=== PATIENT | female | born 1975 | race Caucasian/White ===

== ENCOUNTER 2020-11-02 17:32 | Emergency (ER) | payer MEDICAID, SELFPAY ==
[2020-11-02 17:46] VITALS: BP 116/72; PULSE 65; RESP 16; TEMP 36.3; O2SAT 100
--- NOTE | 2020-11-02 18:13 | ED.GENADULT ---
HPI - General Adult General Chief complaint: Eye Problems Stated complaint: eye irritation Time Seen by Provider: 11/02/20 18:13 Source: patient and RN notes reviewed Mode of arrival: ambulatory Limitations: no limitations History of Present Illness HPI narrative: 45-year-old female presents with complaints of left eye redness, irritation, some burning, and itching for 1 day. Elke reports awaken on 11/01/2020 with LT eye matted together, used a warm washed cloth to free eye of debris. Warm compression with some relief. No pain. No copious drainage. Exacerbating factors is opening eye and light. Relieving factors is closing eyes. Does not wear glasses or contact lenses. No blurred vision, double vision, sensation of foreign body, or pain of eye with movement. LMP hysterectomy. The patient reports she have not been diagnosed with COVID-19. The patient reports she is not waiting for the results of a COVID-19 lab test. The patient reports she do not have chills, weakness, or fatigue. The patient reports she do not have a new or worsening cough or shortness of breath. Denies chest pain. The patient reports she do not have any rhinorrhea, congestion, sore throat, loss of taste or smell, nausea, vomiting, abdominal pain, and diarrhea. Tolerating po intake well. Denies recent traveling. Denies concerns for COVID-19 or exposures been home with limited outdoor exposure except for essential household needs, work, and return home. At this time, patient is not suspected of having COVID-19. Some parts of this dictation were generated by voice recognition software and may contain typographical and/or grammatical inaccuracies. Related Data Allergies Allergy/AdvReac Type Severity Reaction Status Date / Time ketorolac Allergy Unknown HEADACHES Unverified 12/11/15 17:35 meloxicam Allergy Unknown HEADACHES Verified 12/11/15 17:35 oxaprozin Allergy Unknown Verified 12/11/15 17:35 tramadol Allergy Unknown Verified 09/07/16 18:31 DOXYCYCLINE CALCIUM Allergy Unknown Uncoded 12/11/15 17:35 DOXYCYCLINE HYCLATE Allergy Unknown Uncoded 12/11/15 17:35 DOXYCYCLINE MONOHYDRATE Allergy Unknown Uncoded 12/11/15 17:35 Review of Systems Review of Systems: Narrative: CONSTITUTIONAL: Denies fever, chills, sweats. EYES: Denies visual changes. Complains of LT eye redness, itching, and irritation. ENT: Complains of rhinorrhea, congestion. Denies sore throat, otalgia. CARDIOVASCULAR: Denies chest pain, palpitations, edema. RESPIRATORY: Denies dyspnea, wheezing, cough. GASTROINTESTINAL: Denies abdominal pain, nausea, vomiting, diarrhea. SKIN: Denies rash or itching. MUSCULOSKELETAL: Denies acute back pain, joint pain, or myalgia. NEUROLOGIC: Denies numbness or focal weakness. PSYCHIATRIC: Denies anxiety or depression. All systems reviewed & are unremarkable except as noted in HPI and below. [facility] Past Medical History Medical History Obesity Smoker Surgical History Surgical History (Updated 11/02/20 @ 18:29 by TURONG Arroyo) History of hysterectomy History of tubal ligation Hx of laparoscopic adjustable gastric banding Family History Family History (Updated 11/02/20 @ 18:30 by TRUONG Arroyo) Father Unknown family medical history Mother Hypertension Social History Social History (Updated 11/02/20 @ 18:30 by TRUONG Arroyo) Smoking packs per day: 1 Smoking cigarettes per day: 20.0 Years smoked: 15 Smoking pack-years: 15.00 Smoking status: Current every day smoker Tobacco type: cigarettes Second hand tobacco smoke exposure: Yes (spouse) Alcohol intake: never Substance use: never Living arrangements: with family Occupation/Education: occupation Gender identity (if verbalized by the patient): Female Sexual Orientation (if Verbalized by the Patient): Straight or Heterosexual Comments At time of signature, agree with nurse past medical, surgical, social, and family histor
== END 2020-11-02 18:37 | disposition home or self-care (01) ==
PROVIDERS: Emergency Provider Nurse Practitioner Family
DX: H10.32 Unspecified acute conjunctivitis, left eye (principal); F17.210 Nicotine dependence, cigarettes, uncomplicated
CPT/HCPCS: 99213; A9270; G0463

== ENCOUNTER 2021-06-02 13:20 | Emergency (ER) | payer SELFPAY ==
[2021-06-02 13:27] VITALS: BP 101/64; PULSE 78; RESP 16; TEMP 36.4; O2SAT 99
[2021-06-02 13:34] VITALS: BP 101/64; PULSE 78; RESP 16; TEMP 36.4; O2SAT 99
--- NOTE | 2021-06-02 13:38 | ED.WOUNDLAC ---
HPI - Wound/Laceration General Chief Complaint: Wound/Laceration Stated Complaint: rt hand laceration Time Seen by Provider: 06/02/21 13:29 Source: patient and RN notes reviewed History of Present Illness HPI narrative: Patient is a 46-year-old female who presents the urgent care with complaints of a laceration to the top of the right hand. Patient states that she was taking a hot broken dish out of the microwave while at work and it sliced the top of her hand. Patient states that she is up-to-date on her tetanus. States that the incident happened just prior to arrival. Patient has controlled bleeding but otherwise has not taken any [id number] medications. No other acute complaints. No acute distress noted. Patient read the plan of care. Some parts of this dictation were generated by voice recognition software and may contain typographical and/or grammatical inaccuracies. Related Data Allergies Allergy/AdvReac Type Severity Reaction Status Date / Time ketorolac Allergy Unknown HEADACHES Unverified 12/11/15 17:35 meloxicam Allergy Unknown HEADACHES Verified 12/11/15 17:35 oxaprozin Allergy Unknown Unknown Verified 06/02/21 13:34 tramadol Allergy Unknown Unknown Verified 06/02/21 13:34 doxycycline [From Vibramycin] Allergy Unknown Verified 06/02/21 13:34 DOXYCYCLINE CALCIUM Allergy Unknown Unknown Uncoded 06/02/21 13:34 DOXYCYCLINE HYCLATE Allergy Unknown Unknown Uncoded 06/02/21 13:34 DOXYCYCLINE MONOHYDRATE Allergy Unknown Unknown Uncoded 06/02/21 13:34 Review of Systems Review of Systems: CONSTITUTIONAL: Denies fever, chills, or sweats. EYES: Denies visual changes, redness, or discharge. ENT: Denies rhinorrhea, congestion, sore throat, or otalgia. CARDIOVASCULAR: Denies chest pain, palpitations, or edema. RESPIRATORY: Denies cough or dyspnea. GASTROINTESTINAL: Denies abdominal pain, nausea, vomiting, or diarrhea. GENITOURINARY: Denies dysuria or hematuria. SKIN: Reports of a laceration to the top of the right hand MUSCULOSKELETAL: Denies back pain, joint pain, or myalgia. NEUROLOGIC: Denies headache, numbness, or weakness. All other systems reviewed are negative, except as documented in HPI. [facility] Past Medical History Medical History Obesity Smoker Surgical History Surgical History (Updated 11/02/20 @ 18:29 by TRUONG Arroyo) History of hysterectomy History of tubal ligation Hx of laparoscopic adjustable gastric banding Family History Family History (Updated 11/02/20 @ 18:30 by TRUONG Arroyo) Father Unknown family medical history Mother Hypertension Social History Social History (Updated 11/02/20 @ 18:30 by TRUONG Arroyo) Smoking packs per day: 1 Smoking cigarettes per day: 20.0 Years smoked: 15 Smoking pack-years: 15.00 Smoking status: Current every day smoker Tobacco type: cigarettes Second hand tobacco smoke exposure: Yes (spouse) Alcohol intake: never Substance use: never Gender identity (if verbalized by the patient): Female Sexual Orientation (if Verbalized by the Patient): Straight or Heterosexual Comments At the time of my signature, I reviewed and agree with the nursing past medical, surgical, social, and family history. There is no relevant family history pertinent to the patient complaint. Exam Narrative: GENERAL: This is a well-nourished, well-developed patient, in no apparent distress. HEAD: normocephalic, atraumatic. EYES: PERRL. Sclera clear/white. Vision is grossly intact. EARS: External ears normal NOSE: External nose normal with no obvious nasal discharge, nares without redness, no rhinorrhea. THROAT: Mucous membranes moist NECK: Neck supple SKIN: 1.25 cm superficial laceration to the top of the right hand NEURO: awake, alert, and oriented to person, place and time. There were no obvious focal neurologic abnormalities. EXTREMITIES: No clubbing, cyanosis, or edema. Course Vital Signs Vital signs: Vital Signs Otis
== END 2021-06-02 13:53 | disposition home or self-care (01) ==
PROVIDERS: Emergency Provider Nurse Practitioner Family
DX: S61.411A Laceration without foreign body of right hand, initial encounter (principal); W45.8XXA Other foreign body or object entering through skin, initial encounter; Y99.0 Civilian activity done for income or pay; F17.210 Nicotine dependence, cigarettes, uncomplicated; Z98.84 Bariatric surgery status
CPT/HCPCS: 12001; 99212; G0463

== ENCOUNTER 2022-12-27 17:39 | Emergency (ER) | payer MEDICAID, SELFPAY ==
--- NOTE | ~2022-12-27 | XR_ITS ---
EXAMINATION: XR foot LT min 3V DATE: 12/27/2022 18:23 INDICATION: Lateral left foot pain TECHNIQUE: Dorsoplantar, two oblique and lateral views of the left foot were obtained. COMPARISON: None. FINDINGS: Alignment is normal. No fracture. 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 Soft tissues are unremarkable. No ankle joint effusion. IMPRESSION: 1. No acute osseous abnormality. Reviewed, dictated and finalized at location A.
[2022-12-27 17:46] VITALS: BP 136/78; PULSE 71; RESP 16; TEMP 36.6; O2SAT 100
--- NOTE | 2022-12-27 18:13 | ED.EXTPRO ---
HPI - Extremity Problem General Chief complaint: Extremity Problem,Nontraumatic Stated complaint: pain in left foot for 2 wks Time Seen by Provider: 12/27/22 18:10 Source: patient Mode of arrival: ambulatory Limitations: no limitations History of Present Illness HPI Narrative: 47 year old female who presents to [facility] with complaints of 2 week duration of left foot lateral aspect discomfort with no known injury. Patient reports that pain seems to be worse when she has tennis shoes on and has tried 3 different pair. 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 Patient reports that she has taken Tylenol, Ibuprofen and has used ice to her foot without relief in her symptoms. MD Complaint: extremity pain Onset (ago): week(s) (2) Pain Consistency: constant Location: left and lower extremity (lateral foot) Severity scale (1-10): 3 Related Data Allergies Allergy/AdvReac Type Severity Reaction Status Date / Time ketorolac Allergy Unknown HEADACHES Unverified 12/27/22 17:53 meloxicam Allergy Unknown HEADACHES Verified 12/27/22 17:53 oxaprozin Allergy Unknown Unknown Verified 12/27/22 17:53 tramadol Allergy Unknown Unknown Verified 12/27/22 17:53 doxycycline [From Vibramycin] Allergy Unknown Verified 12/27/22 17:53 DOXYCYCLINE CALCIUM Allergy Unknown Unknown Uncoded 12/27/22 17:53 DOXYCYCLINE HYCLATE Allergy Unknown Unknown Uncoded 12/27/22 17:53 DOXYCYCLINE MONOHYDRATE Allergy Unknown Unknown Uncoded 12/27/22 17:53 Review of Systems Review of Systems: CONSTITUTIONAL: Denies fever, chills, or sweats. EYES: Denies visual changes, redness, or discharge. ENT: Denies rhinorrhea, congestion, sore throat, or otalgia. CARDIOVASCULAR: Denies chest pain, palpitations, or edema. RESPIRATORY: Denies cough or dyspnea. GASTROINTESTINAL: Denies abdominal pain, nausea, vomiting, or diarrhea. GENITOURINARY: Denies dysuria or hematuria. SKIN: Denies rash or itching. MUSCULOSKELETAL: Denies back pain, joint pain,reports pain to lateral aspect of left foot mid aspect of foot or myalgia. NEUROLOGIC: Denies headache, numbness, or weakness. PSYCHIATRIC: History of anxiety or depression. All systems reviewed & are unremarkable except as noted in HPI and below PMFSH Past Medical History Medical History Obesity Smoker Surgical History Surgical History History of hysterectomy History of tubal ligation Hx of laparoscopic adjustable gastric banding Family History Family History Father Unknown family medical history Mother Hypertension Social History Social History Smoking packs per day: 1 Smoking cigarettes per day: 20.0 Years smoked: 15 Smoking pack-years: 15.00 Smoking status: Current every day smoker Tobacco type: cigarettes Second hand tobacco smoke exposure: Yes (spouse) Alcohol intake: never Substance use: never Living arrangements: with family Occupation/Education: occupation Gender identity (if verbalized by the patient): Female Sexual Orientation (if Verbalized by the Patient): Straight or Heterosexual Comments At time of signature, agree with nursing past medical, surgical, social and family history. There is no relevant family history pertinent to the presenting complaint Exam Narrative: GENERAL: Well-appearing, well-nourished, and in no acute distress. HEAD: Normocephalic, atraumatic. EYES: PERRLA and EOMI. ENT: Nares clear, no rhinorrhea or epistaxis. Mucous membranes moist.TM's normal, throat pink with no swelling NECK: Supple.no lymphadenopathy CHEST: Clear to auscultation. No respiratory distress.SAO2 100% on room air HEART: Regular rate and rhythm. No murmur heard. Normal peripheral pulses. ABDOMEN: Soft, nontender, nondistended, normal active bowel sounds. EXTREMITIES: Normal range of m
== END 2022-12-27 18:52 | disposition home or self-care (01) ==
PROVIDERS: Emergency Provider Registered Nurse
DX: M79.672 Pain in left foot (principal); F17.210 Nicotine dependence, cigarettes, uncomplicated; E66.9 Obesity, unspecified; Z68.29 Body mass index [BMI] 29.0-29.9, adult
CPT/HCPCS: 73630; 99213; G0463

== ENCOUNTER 2023-01-05 18:22 | Emergency (ER) | payer MEDICAID, SELFPAY ==
[2023-01-05 18:30] VITALS: BP 125/69; PULSE 75; RESP 16; TEMP 36.5; O2SAT 100
--- NOTE | 2023-01-05 18:31 | ED.URI ---
HPI - URI/Sore Throat General Chief Complaint: Upper Respiratory Infection Stated Complaint: COUGH/CHEST BURNING/HEADACHE Time Seen by Provider: 01/05/23 18:31 Source: patient Mode of arrival: ambulatory Limitations: no limitations History of Present Illness HPI Narrative: 47-year-old female presents with complaint of nasal congestion, sore throat, cough, burning chest, fatigue starting last night. No chest pain or shortness of breath. Taking DayQuil to treat symptoms. Afebrile. Denies nausea vomiting diarrhea. Sick contacts per patient. All systems reviewed and negative except as noted above. Related Data Allergies Allergy/AdvReac Type Severity Reaction Status Date / Time ketorolac Allergy Unknown HEADACHES Unverified 01/05/23 18:23 meloxicam Allergy Unknown HEADACHES Verified 01/05/23 18:23 oxaprozin Allergy Unknown Unknown Verified 01/05/23 18:23 tramadol Allergy Unknown Unknown Verified 01/05/23 18:23 doxycycline [From Vibramycin] Allergy Unknown Verified 01/05/23 18:23 DOXYCYCLINE CALCIUM Allergy Unknown Unknown Uncoded 01/05/23 18:23 DOXYCYCLINE HYCLATE Allergy Unknown Unknown Uncoded 01/05/23 18:23 DOXYCYCLINE MONOHYDRATE Allergy Unknown Unknown Uncoded 01/05/23 18:23 Review of Systems Review of Systems: CONSTITUTIONAL: Denies fever, chills, or sweats. Reports fatigue. EYES: Denies visual changes, redness, or discharge. ENT: Reports rhinorrhea, congestion, sore throat. Denies otalgia. CARDIOVASCULAR: Denies chest pain, palpitations, or edema. RESPIRATORY: Reports cough. Denies dyspnea. GASTROINTESTINAL: Denies abdominal pain, nausea, vomiting, or diarrhea. GENITOURINARY: Denies dysuria or hematuria. SKIN: Denies rash or itching. MUSCULOSKELETAL: Denies back pain, joint pain, or myalgia. NEUROLOGIC: Denies headache, numbness, or weakness. PSYCHIATRIC: Denies anxiety or depression. All other systems reviewed are negative, except as documented in HPI. [facility] Past Medical History Medical History Obesity Smoker Surgical History Surgical History History of hysterectomy History of tubal ligation Hx of laparoscopic adjustable gastric banding Family History Family History Father Unknown family medical history Mother Hypertension Social History Social History Smoking packs per day: 1 Smoking cigarettes per day: 20.0 Years smoked: 15 Smoking pack-years: 15.00 Smoking status: Current every day smoker Tobacco type: cigarettes Second hand tobacco smoke exposure: Yes (spouse) Alcohol intake: never Substance use: never Living arrangements: with family Occupation/Education: occupation Gender identity (if verbalized by the patient): Female Sexual Orientation (if Verbalized by the Patient): Straight or Heterosexual Comments At time of signature, agree with nursing past medical, surgical, social and family history. There is no relevant family history pertinent to the presenting complaint. Exam Narrative: GENERAL: This is a well-nourished, well-developed patient, in no apparent distress. HEAD: normocephalic, atraumatic. EYES: PERRL. Sclera clear/white. Vision is grossly intact. EARS: External ears normal, auditory canals clear and without drainage, TMs normal without perforation. Hearing grossly intact. NOSE: External nose normal with clear nasal drainage. No erythema or swelling to nares. THROAT: Mucous membranes moist, posterior pharynx clear. NECK: Neck supple, non-tender without lymphadenopathy, masses or thyromegaly. CARDIOVASCULAR: Regular rate and rhythm without murmurs, gallops, or rubs. RESPIRATORY: Clear to auscultation. Breath sounds equal bilaterally. No wheezes, rales, or rhonchi. SKIN: warm, Dry, intact with no suspicious lesions or rash, good texture and turgor. NEURO: awake, alert, and oriented
== END 2023-01-05 18:56 | disposition home or self-care (01) ==
PROVIDERS: Emergency Provider Nurse Practitioner Family
DX: J06.9 Acute upper respiratory infection, unspecified (principal); Z20.822 Contact with and (suspected) exposure to COVID-19; F17.210 Nicotine dependence, cigarettes, uncomplicated; E66.9 Obesity, unspecified; Z68.27 Body mass index [BMI] 27.0-27.9, adult
CPT/HCPCS: 87081; 87426; 87804; 87880; 99213; C9803; G0463

== ENCOUNTER 2023-09-16 16:13 | Emergency (ER) | payer BC, SELFPAY ==
--- NOTE | 2023-09-16 16:18 | ED.URI ---
HPI - URI/Sore Throat General Chief Complaint: Upper Respiratory Infection Stated Complaint: Sore Throat Time Seen by Provider: 09/16/23 16:17 Source: patient Mode of arrival: ambulatory Limitations: no limitations History of Present Illness HPI Narrative: Elke is a 48-year-old female patient presenting to the clinic today with complaints of a sore throat and headache that just started this morning although she has had nasal congestion for the past 2 days. She reports no known fever or chills. Denies any chest pain or shortness of breath. MD elicited complaint: sore throat and nasal congestion Related Data Home Medications Medication Instructions Recorded Confirmed bupropion HCl 150 mg tablet,12 hr mg PO 09/16/23 sustained-release nicotine 14 mg/24 hr daily 09/16/23 transdermal patch Allergies Allergy/AdvReac Type Severity Reaction Status Date / Time ketorolac Allergy Unknown HEADACHES Verified 09/16/23 16:24 meloxicam Allergy Unknown HEADACHES Verified 09/16/23 16:24 oxaprozin Allergy Unknown Unknown Verified 09/16/23 16:24 tramadol Allergy Unknown Unknown Verified 09/16/23 16:24 doxycycline [From Vibramycin] Allergy Unknown Verified 09/16/23 16:24 DOXYCYCLINE CALCIUM Allergy Unknown Unknown Uncoded 09/16/23 16:24 DOXYCYCLINE HYCLATE Allergy Unknown Unknown Uncoded 09/16/23 16:24 DOXYCYCLINE MONOHYDRATE Allergy Unknown Unknown Uncoded 09/16/23 16:24 Review of Systems Review of Systems: Pertinent positives per HPI. Patient denies any fever, chills, rash, visual changes, dizziness, cough, shortness of breath, chest pain, palpitations, nausea, vomiting, diarrhea, constipation, abdominal pain, or any urinary issues. [facility] Past Medical History Medical History Obesity Smoker Surgical History Surgical History History of hysterectomy History of tubal ligation Hx of laparoscopic adjustable gastric banding Family History Family History Father Unknown family medical history Mother Hypertension Social History Social History Smoking packs per day: 1 Smoking cigarettes per day: 20.0 Years smoked: 15 Smoking pack-years: 15.00 Smoking status: Current every day smoker Tobacco type: cigarettes Second hand tobacco smoke exposure: Yes (spouse) Alcohol intake: never Substance use: never Living arrangements: with family Occupation/Education: occupation Gender identity (if verbalized by the patient): Female Sexual Orientation (if Verbalized by the Patient): Straight or Heterosexual Comments At the time of my signature, I reviewed and agree with the nursing past medical, surgical, social, and family history. There is no relevant family history pertinent to the patient complaint. Exam Narrative: General: Well-developed, well nourished, in no apparent distress Head: Normocephalic, atraumatic Eyes: Pupils equally round and reactive to light bilaterally, EOM intact, sclera and conjunctive clear, no discharge, lids normal Ears: TMs intact and clear, ear canals clear, no drainage, grossly hearing normal. Nose: Nares patent, no discharge, no inflammation, no sinus tenderness. Mouth: Oral pharynx without lesions or masses, good dentition, MMM. Neck: Supple, trachea midline, no enlargement of anterior or posterior cervical nodes, no thyroid masses or goiter palpable. Cardio: Regular rate and rhythm, s1 and s2 normal, no murmur appreciated. Resp: Clear to auscultation bilaterally, no rhonchi, rales, wheezing or rubs Course Course Emergency Course: Portions of this record may have been created with voice recognition software. Level of Care: Express Care Visit Vital Signs Vital signs: Vital signs reviewed MDM - URI/Sore Throat MDM Narrative Medical decision making narrative: At the time
[2023-09-16 16:26] VITALS: BP 141/87; PULSE 61; RESP 16; TEMP 36.6; O2SAT 100
== END 2023-09-16 16:50 | disposition home or self-care (01) ==
PROVIDERS: Emergency Provider Nurse Practitioner Family
DX: J06.9 Acute upper respiratory infection, unspecified (principal); B34.9 Viral infection, unspecified; J02.9 Acute pharyngitis, unspecified; Z20.822 Contact with and (suspected) exposure to COVID-19; F17.210 Nicotine dependence, cigarettes, uncomplicated
CPT/HCPCS: 87081; 87426; 87804; 87880; 99213; G0463

== ENCOUNTER 2024-02-26 16:48 | Emergency (ER) | payer BC, SELFPAY ==
[2024-02-26 17:09] VITALS: BP 122/92; PULSE 68; RESP 16; TEMP 36.4; O2SAT 100
--- NOTE | 2024-02-26 17:30 | ED.URI ---
HPI - URI/Sore Throat General Chief Complaint: Upper Respiratory Infection Stated Complaint: COUGH/SOB Time Seen by Provider: 02/26/24 17:30 Source: patient, RN notes reviewed and old records reviewed Mode of arrival: ambulatory Limitations: no limitations History of Present Illness HPI Narrative: patient presents with complaints of cough and fatigue that began this morning. She reports subjective fever, fatigue. She has not been taking anything for her symptoms. She did have to leave work due to her symptoms. Related Data Home Medications Medication Instructions Recorded Confirmed No Home Medications 02/26/24 02/26/24 Allergies Allergy/AdvReac Type Severity Reaction Status Date / Time ketorolac Allergy Unknown HEADACHES Verified 09/16/23 16:24 meloxicam Allergy Unknown HEADACHES Verified 09/16/23 16:24 oxaprozin Allergy Unknown Unknown Verified 09/16/23 16:24 tramadol Allergy Unknown Unknown Verified 02/26/24 17:07 doxycycline [From Vibramycin] Allergy Unknown Verified 09/16/23 16:24 DOXYCYCLINE CALCIUM Allergy Unknown Unknown Uncoded 09/16/23 16:24 DOXYCYCLINE HYCLATE Allergy Unknown Unknown Uncoded 09/16/23 16:24 DOXYCYCLINE MONOHYDRATE Allergy Unknown Unknown Uncoded 09/16/23 16:24 Review of Systems Review of Systems: All systems reviewed & are unremarkable except as noted in HPI and below Constitutional: Constitutional: Reports no additional constitutional complaints ENT: Reports system reviewed and no additional complaints, except as documented Cardiovascular: Cardiovascular: Reports no additional cardiovascular complaints Respiratory: Respiratory: Reports as per HPI, Reports no additional respiratory complaints and Reports cough Gastrointestinal: Gastrointestinal: Reports no additional gastrointestinal complaints Neurologic: Reports headache(s) PMFSH Past Medical History Medical History Obesity Smoker Surgical History Surgical History History of hysterectomy History of tubal ligation Hx of laparoscopic adjustable gastric banding Family History Family History Father Unknown family medical history Mother Hypertension Social History Social History Smoking packs per day: 1 Smoking cigarettes per day: 20.0 Years smoked: 15 Smoking pack-years: 15.00 Smoking status: Current every day smoker Tobacco type: cigarettes Second hand tobacco smoke exposure: Yes (spouse) Alcohol intake: never Substance use: never Living arrangements: with family Occupation/Education: occupation Gender identity (if verbalized by the patient): Female Sexual Orientation (if Verbalized by the Patient): Straight or Heterosexual Exam Const: General: cooperative, no acute distress, alert and awake Orientation/consciousness: oriented to person, oriented to place and oriented to time HENMT: Head: normal to inspection Resp: Effort & Inspection: normal respiratory effort and able to speak in complete sentences Auscultation: clear to auscultation bilaterally, no crackles, no rales, no rhonchi and no wheezes Cardio: Palpation: normal PMI Rate: regular rate Rhythm: regular rhythm Heart sounds: S1 normal heart sound present and S2 normal heart sound present Neuro: General: oriented to person, oriented to place and oriented to time Cranial nerves: Yes CN's II-XII intact bilaterally Psych: Appearance: grossly normal Thought process: Normal thought process present Insight: Good insight present (Psych) Judgement: Good judgement present (Psych) Course Course Level of Care: Express Care Visit Vital Signs Vital signs: Vital Signs Temperature 97.5 F L 02/26/24 17:09 Pulse Rate 68 02/26/24 17:09 Respiratory Rate 16 02/26/24 17:09 Blood Pressure 122/92 H 02/26/24 17:09 Pulse Oximetry 100 02/26/24 17:09
== END 2024-02-26 17:39 | disposition home or self-care (01) ==
PROVIDERS: Emergency Provider Nurse Practitioner Family
DX: J06.9 Acute upper respiratory infection, unspecified (principal); Z20.822 Contact with and (suspected) exposure to COVID-19; F17.210 Nicotine dependence, cigarettes, uncomplicated; E66.9 Obesity, unspecified; Z68.32 Body mass index [BMI] 32.0-32.9, adult; Z98.84 Bariatric surgery status
CPT/HCPCS: 87426; 99213; G0463